=== PATIENT | female | born 1990 | race Caucasian/White ===

== ENCOUNTER 2021-06-14 23:32 | Emergency (ER) | payer OTHER, SELFPAY ==
[2021-06-14 23:42] VITALS: BP 119/57; PULSE 116; RESP 16; TEMP 36.4; O2SAT 99
[2021-06-15] VITALS (16 sets, daily range): BP systolic 102–114; BP diastolic 57–74; PULSE 111; RESP 16; O2SAT 100
--- NOTE | 2021-06-15 00:33 | ED.NAVMDI ---
HPI - Nausea/Vomiting/Diarrhea General Chief complaint: Nausea/Vomiting/Diarrhea Stated complaint: n/v/d Time Seen by Provider: 06/14/21 23:41 History of Present Illness HPI Narrative: 30-year-old female presented the emergency room complaining of nausea vomiting and diarrhea since 3:00 this afternoon. Patient reports generalized abdominal discomfort/cramping. Denies fever Related Data Allergies Allergy/AdvReac Type Severity Reaction Status Date / Time No Known Allergies Allergy Verified 06/14/21 23:44 Review of Systems Review of Systems: CONSTITUTIONAL: Denies fever, chills, or sweats. EYES: Denies visual changes, redness, or discharge. ENT: Denies rhinorrhea, congestion, sore throat, or otalgia. CARDIOVASCULAR: Denies chest pain, palpitations, or edema. RESPIRATORY: Denies cough or dyspnea. GASTROINTESTINAL: Reports abdominal pain, nausea, vomiting, or diarrhea. GENITOURINARY: Denies dysuria or hematuria. SKIN: Denies rash or itching. MUSCULOSKELETAL: Denies back pain, joint pain, or myalgia. NEUROLOGIC: Denies headache, numbness, dizziness, or weakness. PSYCHIATRIC: Denies anxiety or depression. Exam Narrative: GENERAL: Well-appearing, well-nourished, and in no acute distress. HEAD: Normocephalic, atraumatic. EYES: PERRLA and EOMI. CHEST: Clear to auscultation. No respiratory distress. No wheezes rales or rhonchi HEART: Regular rate and rhythm. No murmur heard. Normal peripheral pulses. ABDOMEN: Soft, generalized tenderness, nondistended, normal active bowel sounds. EXTREMITIES: Normal range of motion. No edema. SKIN: Warm, dry, no rash. NEURO: No focal deficits. Alert and oriented x3. PSYCH: Normal mood and affect. Course Vital Signs Vital signs: Vital Signs Temperature 36.4 C L 06/14/21 23:42 Pulse Rate 116 H 06/14/21 23:42 Respiratory Rate 16 06/14/21 23:42 Blood Pressure 119/57 L 06/14/21 23:42 Pulse Oximetry 99 06/14/21 23:42 Temperature 36.4 C L 06/14/21 23:42 Pulse Rate 116 H 06/14/21 23:42 Respiratory Rate 16 06/14/21 23:42 Blood Pressure 119/57 L 06/14/21 23:42 Pulse Oximetry 99 06/14/21 23:42 MDM - Nausea/Vomiting/Diarrhea MDM Narrative Medical decision making narrative: 22-year-old female presented to the emergency room for evaluation of nausea vomiting and diarrhea that began earlier today. Patient reported generalized abdominal cramping as well. CBC showed elevated white count likely due from the inflammatory response of the vomiting and elevated blood sugar. Otherwise a CBC and CMP were unremarkable. Patient responded well to fluids antiemetics and antispasmodics. Differential Diagnosis Differential diagnosis: Likely gastroenteritis Medical Records Attestation: I reviewed the patient's medical records. Lab Data Attestation: I reviewed the patient's lab results. Result diagrams: 06/15/21 00:40 06/15/21 00:40 Labs: Lab Results 06/15/21 06/15/21 Range/Units 00:40 00:40 WBC 14.0 H (4.5-10.0) K/mm3 RBC 4.87 (4.2-5.4) M/mm3 Hgb 12.8 (12.0-15.0) g/dL Hct 41.5 (37.0-47.0) % MCV 85.2 (80-100) fl MCH 26.3 (26-34) pg MCHC 30.8 L (32-36) g/dl RDW 14.9 H (11.5-14.5) % Plt Count 242 (150-375) k/mm3 MPV 11.6 H (7.4-10.4) fl Immature Gran % (Auto) 0.4 (0-0.5) % Neut % (Auto) 91.8 H (45.5-73.1) % Lymph % (Auto) 2.4 L (18.3-44.2) % Ramsey % (Auto) 4.9 (2.6-8.5) % Eos % (Auto) 0.1 (0-4.4) % Baso % (Auto) 0.4 (0.2-1.2) % Lymph # (Auto) 0.34 L (0.9-3.2) K/mm3 Ramsey # (Auto) 0.7 H (0.1-0.6) K/mm3 Eos # (Auto) 0.0 (0-0.3) K/mm3 Baso # (Auto) 0.1 (0.0-0.1) K/mm3 Abs Immat Gran (auto) 0.06 H (0.00-0.031) K/mm3 Absolute Neuts (auto) 12.8 H (1.3-6.7) K/mm3 Absolute Nucleated RBC 0.0 (0.0-0.012) K/mm3 Nucleated RBC % 0.0 (0.0-0.2) % Sodium 138 (137-145) mmol/L Potassium 3.9 (3.4-5.0) mmol/L Chloride 101 (98-107) mmol/L Carbon Dioxide 26 (2
[2021-06-15] MEDS: SODIUM CHLORIDE 0.9% IV 1,000 ML 999 ML IV CONT ×2 (00:34→02:14)
[2021-06-15] MEDS: ONDANSETRON INJ 4 MG/2 ML VIAL IV PUSH (00:34)
[2021-06-15] MEDS: DICYCLOMINE HCL INJ 20 MG/2 ML VIAL IM (00:37)
[2021-06-15 00:47] LABS: Basophils Absolute Auto 0.1 K/mm3 (0.0-0.1); Basophils Percent Auto 0.4 % (0.2-1.2); Eosinophils Percent Auto 0.1 % (0-4.4); Hematocrit 41.5 % (37.0-47.0); Hemoglobin 12.8 g/dL (12.0-15.0); Immature Granulocyte Absolute 0.06 K/mm3 (0.00-0.031); Immature Granulocyte Percent A 0.4 % (0-0.5); Lymphocytes Absolute Auto 0.34 K/mm3 (0.9-3.2); Lymphocytes Percent Auto 2.4 % (18.3-44.2); Mean Corpuscular HGB Conc 30.8 g/dl (32-36); Mean Corpuscular Hemoglobin 26.3 pg (26-34); Mean Corpuscular Volume 85.2 fl (80-100); Mean Platelet Volume 11.6 fl (7.4-10.4); Monocytes Absolute Auto 0.7 K/mm3 (0.1-0.6); Monocytes Percent Auto 4.9 % (2.6-8.5); Neutrophils Absolute Auto 12.8 K/mm3 (1.3-6.7); Neutrophils Percent Auto 91.8 % (45.5-73.1); Platelet Count Result 242 k/mm3 (150-375); Red Blood Count 4.87 M/mm3 (4.2-5.4); Red Cell Distribution Width 14.9 % (11.5-14.5)
[2021-06-15 00:57] LABS: Alanine Aminotransferase 15 U/L (4-35); Albumin Level 4.9 g/dL (3.5-5.1); Alkaline Phosphatase 83 U/L (38-126); Anion Gap 11 mmol/L (8-16); Aspartate Amino Transferase 26 U/L (14-36); Bilirubin,Total 0.2 mg/dL (0.2-1.3); Blood Urea Nitrogen 13 mg/dL (7-17); Calcium 8.7 mg/dL (8.4-10.2); Carbon Dioxide 26 mmol/L (22-30); Chloride 101 mmol/L (98-107); Estimated CRCL calculation 89 ml/min; Estimated Glomerular Filt Rate > 60; Glucose 160 mg/dL (65-110); Potassium 3.9 mmol/L (3.4-5.0); Sodium 138 mmol/L (137-145)
[2021-06-15] MEDS: PANTOPRAZOLE SODIUM IV 40 MG VIAL IV PUSH (01:47)
[2021-06-15] MEDS: diphenhydrAMINE HCl INJ 50 MG/ML VIAL 25 MG IV PUSH (02:15)
[2021-06-15] MEDS: SODIUM CHLORIDE 0.9% IV 100 ML 500 ML (02:15)
[2021-06-15] MEDS: METOCLOPRAMIDE HCL INJ 10 MG/2 ML VIAL IV PUSH (02:15)
[2021-06-15] MEDS: METOCLOPRAMIDE HCL INJ 10 MG/2 ML VIAL IM (04:30)
== END 2021-06-15 06:12 | disposition home or self-care (01) ==
PROVIDERS: Emergency Provider Nurse Practitioner Family
DX: A05.9 Bacterial foodborne intoxication, unspecified (principal)
CPT/HCPCS: 36415; 80053; 85025; 96361; 96372; 96374; 96375; 99284; C9113; J0500; J1200; J2405; J2765; J7030

== ENCOUNTER 2022-04-15 02:35 | Emergency (ER) | payer SELFPAY ==
--- NOTE | ~2022-04-15 | CT_ITS ---
EXAMINATION: CT brain wo con INDICATION: Headache COMPARISON: None TECHNIQUE: Standard unenhanced head CT. The dose-length product (DLP) was 605.33 mGy-cm. The mA was a djusted according to patient size. Iterative reconstruction technique was employed. FINDINGS: There is no intracranial hemorrhage, acute infarction, or abnormal mass lesion. The ventric les are normal. There is no abnormal mass effect or midline shift. The zeng-white matter differentiat ion is normal. The basal cisterns are patent. The orbits are normal. The paranasal sinuses, mastoids and calvarium are normal. IMPRESSION: 1. No acute intracranial abnormality. Reviewed, dictated and finalized at location B. [facility] [employer]
[2022-04-15 03:28] VITALS: BP 135/81; PULSE 100; RESP 16; TEMP 37.1; O2SAT 100
[2022-04-15 06:19] VITALS: BP 131/79; PULSE 94; RESP 18; TEMP 36.6; O2SAT 99
--- NOTE | 2022-04-15 07:54 | ED.GENADULT ---
HPI - General Adult General Chief complaint: Headache Stated complaint: int sharp head pain Time Seen by Provider: 04/15/22 06:56 History of Present Illness HPI narrative: 31-year-old female presented emerged department for evaluation of intermittent left-sided occipital headaches. Patient states that the headache started yesterday approximately 2 PM and she describes a short flash of a pain that stays fairly localized to the back of her scalp. Patient denies any associated nausea vomiting or numbness or weakness with this. Patient denies any falls or injuries. 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 Related Data Allergies Allergy/AdvReac Type Severity Reaction Status Date / Time No Known Allergies Allergy Verified 06/14/21 23:44 Review of Systems Review of Systems: CONSTITUTIONAL: Denies fever, chills, or sweats. EYES: Denies visual changes, redness, or discharge. ENT: Denies rhinorrhea, congestion, sore throat, or otalgia. CARDIOVASCULAR: Denies chest pain, palpitations, or edema. RESPIRATORY: Denies cough or dyspnea. GASTROINTESTINAL: Denies abdominal pain, nausea, vomiting, or diarrhea. GENITOURINARY: Denies dysuria or hematuria. SKIN: Denies rash or itching. MUSCULOSKELETAL: Denies back pain, joint pain, or myalgia. NEUROLOGIC: See HPI Exam Narrative: APPEARANCE: Well appearing, no pain, no distress, well-nourished. HEAD: normocephalic, atraumatic. EYES: PERRLA/EOMI, conjunctivae clear. NOSE: Normal no drainage EARS:TMS clear with good light reflex. THROAT: Pharynx clear, no exudate. NECK: Supple. No adenopathy, no masses. RESPIRATORY: Airway patent, respirations nonlabored. Clear to auscultation bilaterally, no rales, rhonchi, wheezing. CARDIOVASCULAR: Regular rate and rhythm without murmurs rubs or gallops. ABDOMINAL: Soft, nontender, nondistended, normal bowel sounds MUSCULOSKELETAL: Moves all extremities. Strength/ROM intact, No edema, No calf tenderness. NEURO: Alert. Cranial nerves II through XII intact. Normal strength and reflexes, no ataxia, normal Romberg no drift normal heel-to-toe and forward and backward tandem gait SKIN: Warm, dry. Normal [place]. no lesions on the skin at the site of of occipital tenderness. Course Course Emergency Course: With no prior history of headaches but having significant headaches a CT was ordered to rule out any intracranial abnormality including epidural, subdural hematoma. Patient's pain is fairly localized and reproducible. Pain is localized to the site of the occipital nerve. I feel an occipital neuralgia is more likely. Discussed treatment options including gabapentin but due to patient requiring to take the bar exam in the next few days it was agreed that steroids may be more beneficial. Patient was updated on the plan for treatment. All question concerns were addressed. 8:30 AM patient had a negative head CT. Patient's symptoms are consistent with an occipital neuralgia with intermittent sharp pain radiating from an occipital trigger point. Pain is reproducible with palpation. Patient will be started on a Medrol Dosepak and was informed to take Tylenol for pain control. Patient was provided neurology follow-up. Low concern for subdural or epidural hematoma due to negative imaging. Patient was updated on the results of the work-up. All question concerns were addressed. Patient was stable at time of discharge. Vital Signs Vital signs: Vital Signs Temperature 98.7 F 04/15/22 03:28 Pulse Rate 100 04/15/22 03:28 Respiratory Rate 16 04/15/22 03:28 Blood Pressure 135/81 04/15/22 03:28 Pulse Oximetry 100 04/15/22 03:28 Oxygen Delivery Room Air 04/15/22 03:28 Temperature 98 F 04/15/22 06:19 Pulse Rate 76 04/15/22 08:48 Respiratory Rate 16 04/15/22 08:48 Blood Pressure 115/71
[2022-04-15] MEDS: KETOROLAC 30 MG/ML VIAL (*BKC) IM (08:35)
[2022-04-15 08:48] VITALS: BP 115/71; PULSE 76; RESP 16; O2SAT 100
== END 2022-04-15 08:45 | disposition home or self-care (01) ==
PROVIDERS: Emergency Provider Emergency Medicine; PCP Family Medicine
DX: R51.9 Headache, unspecified (principal); M54.81 Occipital neuralgia
CPT/HCPCS: 70450; 96372; 99284; J1885

== ENCOUNTER 2022-09-04 21:02 | Emergency (ER) | payer OTHER, SELFPAY ==
[2022-09-04 21:03] VITALS: BP 128/92; PULSE 105; RESP 18; TEMP 36.4; O2SAT 100
--- NOTE | 2022-09-04 21:23 | ED.GENADULT ---
HPI - General Adult General Chief complaint: Skin/Abscess/Foreign Body Stated complaint: ingrown hair Time Seen by Provider: 09/04/22 21:08 Source: patient Mode of arrival: ambulatory Limitations: no limitations History of Present Illness HPI narrative: This is a 32-year-old female who presents to the ED with chief complaint of possible skin infection onset yesterday. Patient noticed some redness around the bikini line. She feels like a hair follicle may be infected. She saw some purulent material earlier today and was able to express it and is no longer seen any. She states she is concerned for staph infection. She denies fevers, chills, nausea, vomiting, spreading redness or swelling around the groin. Related Data Allergies Allergy/AdvReac Type Severity Reaction Status Date / Time No Known Allergies Allergy Verified 09/04/22 21:02 Exam Narrative: GENERAL: Well-appearing, well-nourished, and in no acute distress. HEAD: Normocephalic, atraumatic. EYES: PERRLA and EOMI. ENT: Nares clear, no rhinorrhea or epistaxis. Mucous membranes moist. Oropharynx without tonsillar hypertrophy exudate or other lesions. NECK: Supple. No adenopathy or masses. CHEST: No respiratory distress. Clear to auscultation. No wheezes rales or rhonchi HEART: Regular rate and rhythm. No murmur heard. Normal peripheral pulses. ABDOMEN: Soft, nontender, nondistended, normal active bowel sounds. MSK: Normal range of motion. No edema. SKIN: Small area of erythema around hair follicle near the right groin crease. No purulent material able to be expressed. No spreading erythema throughout the groin. Minimal tenderness. NEURO: Alert and oriented x3. No focal deficits. PSYCH: Normal mood and affect. Course Vital Signs Vital signs: Vital Signs Temperature 97.6 F 09/04/22 21:03 Pulse Rate 105 H 09/04/22 21:03 Respiratory Rate 18 09/04/22 21:03 Blood Pressure 128/92 H 09/04/22 21:03 Pulse Oximetry 100 09/04/22 21:03 Oxygen Delivery Room Air 09/04/22 21:03 Temperature 97.6 F 09/04/22 21:03 Pulse Rate 105 H 09/04/22 21:03 Respiratory Rate 18 09/04/22 21:03 Blood Pressure 128/92 H 09/04/22 21:03 Pulse Oximetry 100 09/04/22 21:03 Oxygen Delivery Room Air 09/04/22 21:03 Medical Decision Making MDM Narrative Medical decision making narrative: This is a 32-year-old female who presents to the ED with chief complaint of a possible ingrown hair in the groin region. Vitals are normal. Exam does reveal evidence of folliculitis. She will be given topical antibiotics and a prescription for oral antibiotics. Supportive measures for home discussed. Return precautions given. Patient is understanding and agreeable with the plan for discharge and follow-up with her PCP. Vital Signs Vital Signs: Vital Signs Temperature 97.6 F 09/04/22 21:03 Pulse Rate 105 H 09/04/22 21:03 Respiratory Rate 18 09/04/22 21:03 Blood Pressure 128/92 H 09/04/22 21:03 Pulse Oximetry 100 09/04/22 21:03 Oxygen Delivery Room Air 09/04/22 21:03 Temperature 97.6 F 09/04/22 21:03 Pulse Rate 105 H 09/04/22 21:03 Respiratory Rate 18 09/04/22 21:03 Blood Pressure 128/92 H 09/04/22 21:03 Pulse Oximetry 100 09/04/22 21:03 Oxygen Delivery Room Air 09/04/22 21:03 Discharge Plan Discharge Clinical Impression: Folliculitis Patient Disposition: Home, Self-Care Condition: Stable Instructions: Antibiotic Form, Warm Compress or Soak (ED) Additional Instructions: Use warm compresses and warm soaks on the affected area. Use antibacterial soap daily. Change the dressing and use topical antibiotics daily. Please take the antibiotic through its full course. This should start to resolve over the next 3 days. If you have any new or worsening symptoms as we discussed please return to the ER or see your doctor for further evaluation. Prescriptions: New cephalexin 500 mg capsule 500 mg
[2022-09-04] MEDS: CEPHALEXIN 500 MG CAPSULE PO (21:57)
== END 2022-09-04 22:18 | disposition home or self-care (01) ==
PROVIDERS: Emergency Provider Physician Assistant; PCP Internal Medicine
DX: L73.9 Follicular disorder, unspecified (principal)
CPT/HCPCS: 99283; A9270

== ENCOUNTER 2023-02-22 16:39 | Emergency (ER) | payer OTHER, SELFPAY ==
[2023-02-22 16:49] VITALS: BP 129/85; PULSE 98; RESP 16; TEMP 36.8; O2SAT 100
--- NOTE | 2023-02-22 17:36 | ED.GENADULT ---
HPI - General Adult General Chief complaint: Extremity Injury, Upper Stated complaint: Right Finger Injury Time Seen by Provider: 02/22/23 17:37 Source: patient Mode of arrival: ambulatory Limitations: no limitations History of Present Illness HPI narrative: 32-year-old female presented for complaint of puncture wound to the right index fingertip. Injury occurred about 4 days ago when she lifted a metal object that poked the finger. Since then she has had a small red area to the fingertips, but states the site appears bigger today than it was yesterday. She denies any drainage or streaking, nausea vomiting or fever. No treatment prior to arrival. Related Data Allergies Allergy/AdvReac Type Severity Reaction Status Date / Time No Known Allergies Allergy Verified 09/04/22 21:02 Review of Systems Review of Systems: CONSTITUTIONAL: Denies body aches, fever, chills, or sweats. EYES: Denies visual changes, redness, or discharge. ENT: Denies rhinorrhea, congestion CARDIOVASCULAR: Denies chest pain, palpitations, or edema. RESPIRATORY: Denies cough or dyspnea. GASTROINTESTINAL: Denies abdominal pain, nausea, vomiting, or diarrhea. SKIN: reports right index finger wound MUSCULOSKELETAL: Denies back pain, joint pain, or myalgia. NEUROLOGIC: Denies headache, numbness, tingling, or weakness. [facility] Past Medical History Medical History (Updated 02/22/23 @ 17:50 by Suzanne Humphreys APRN) No pertinent past medical history Comments At time of signature, I have reviewed and agree with nursing past medical, surgical, social and family history unless otherwise noted. Please see nursing chart for further information. There is no relevant family history pertinent to the presenting complaint Exam Narrative: GENERAL: Well-appearing HEAD: Normocephalic EYES: conjunctivae clear, and EOMI. ENT: Mucous membranes moist. Oropharynx without edema, erythema or lesions. NECK: Supple. No lymphadenopathy CHEST: Clear to auscultation. HEART: Regular rate and rhythm. SKIN: Warm, dry. Right hand 2nd digit finger tip with approximately 2 mm diameter circular puncture site with yellow center surrounded with red ring; mildly tender. No swelling, drainage, fluctuance or induration. NEURO: Alert and oriented x3. Course Course Emergency Course: Patient is aware of diagnosis, understands and agrees to treatment plan. Anticipatory guidance given. Patient agrees to follow-up as directed and is aware of reasons to seek care at the emergency department. Portions of this record may have been created with voice recognition software Level of Care: Express Care Visit Vital Signs Vital signs: Vital Signs Temperature 98.3 F 02/22/23 16:49 Pulse Rate 98 02/22/23 16:49 Respiratory Rate 16 02/22/23 16:49 Blood Pressure 129/85 02/22/23 16:49 Pulse Oximetry 100 02/22/23 16:49 Temperature 98.3 F 02/22/23 16:49 Pulse Rate 98 02/22/23 16:49 Respiratory Rate 16 02/22/23 16:49 Blood Pressure 129/85 02/22/23 16:49 Pulse Oximetry 100 02/22/23 16:49 Reviewed Medical Decision Making MDM Narrative Medical decision making narrative: Discussed physical exam findings. Advised supportive measures and signs/symptoms to go to the ER. Pt is appropriate for outpt treatment and f/u. Differential Diagnosis Differential Diagnosis: puncture wound, cellulitis, abscess, abrasion, contusion, paronychia, felon Vital Signs Vital Signs: Vital Signs Temperature 98.3 F 02/22/23 16:49 Pulse Rate 98 02/22/23 16:49 Respiratory Rate 16 02/22/23 16:49 Blood Pressure 129/85 02/22/23 16:49 Pulse Oximetry 100 02/22/23 16:49 Temperature 98.3 F 02/22/23 16:49 Pulse Rate 98 02/22/23 16:49 Respiratory Rate 16 02/22/23 16:49 Blood Pressure 129/85 02/22/23 16:49 Pulse Oximetry 100 02/22/23 16:49 Discharge Plan Discharge Clinical Impression: Puncture wound of finger of right sin
== END 2023-02-22 17:49 | disposition home or self-care (01) ==
PROVIDERS: Emergency Provider Nurse Practitioner Family
DX: S61.230A Puncture wound without foreign body of right index finger without damage to nail, initial encounter (principal); W45.8XXA Other foreign body or object entering through skin, initial encounter
CPT/HCPCS: 99213; G0463

== ENCOUNTER 2023-04-25 11:43 | Emergency (ER) | payer OTHER, SELFPAY ==
--- NOTE | ~2023-04-25 | XR_ITS ---
EXAMINATION: XR toe 2nd RT min 2V DATE: 04/25/2023 12:35 INDICATION: Right second toe injury and pain and swelling. TECHNIQUE: 4 views of right second toe were obtained. COMPARISON: None. FINDINGS: Bone alignment is normal. No fracture. Joint spaces are normal. IMPRESSION: 1. No fracture. Reviewed, dictated and finalized at location A. SPORTATION ATTENDANT IMPRESSION: 1. No fracture.
[2023-04-25 11:58] VITALS: BP 122/80; PULSE 100; RESP 16; TEMP 36.9; O2SAT 100
--- NOTE | 2023-04-25 12:34 | ED.GENADULT ---
HPI - General Adult General Chief complaint: Extremity Problem,Nontraumatic Stated complaint: Swelling to right middle toe Time Seen by Provider: 04/25/23 12:29 Source: patient, RN notes reviewed and old records reviewed Mode of arrival: ambulatory Limitations: no limitations History of Present Illness HPI narrative: 32-year-old female who presents to [facility] with complaints of pain and swelling to her right 3rd toe which initially occurred with an injury which occurred on the 12 of April when she hit toe on a chair. Patient reports that it was getting better and then she did yoga and thinks she aggravated the pain in her right third toe. MD complaint: pain right third toe Onset (ago): day(s) (initially injuryed 04/12/2023) Severity scale (1-10): 3 Treatments prior to arrival: cold therapy Related Data Allergies Allergy/AdvReac Type Severity Reaction Status Date / Time No Known Allergies Allergy Verified 04/25/23 12:06 Review of Systems Review of Systems: CONSTITUTIONAL: Denies fever, chills, or sweats. EYES: Denies visual changes, redness, or discharge. ENT: Denies rhinorrhea, congestion, sore throat, or otalgia. CARDIOVASCULAR: Denies chest pain, palpitations, or edema. RESPIRATORY: Denies cough or dyspnea. GASTROINTESTINAL: Denies abdominal pain, nausea, vomiting, or diarrhea. GENITOURINARY: Denies dysuria or hematuria. SKIN: Denies rash or itching. MUSCULOSKELETAL: Denies back pain,3rd right toe pain , or myalgia. NEUROLOGIC: Denies headache, numbness, or weakness. PSYCHIATRIC: Denies anxiety or depression. All systems reviewed & are unremarkable except as noted in HPI and below PMFSH Past Medical History Medical History No pertinent past medical history Social History Social History Smoking status: Never smoker Alcohol intake: current Alcohol use details: rare Substance use type: does not use Gender identity (if verbalized by the patient): Female Comments At time of signature, agree with nursing past medical, surgical, social and family history. There is no relevant family history pertinent to the presenting complaint Exam Narrative: GENERAL: Well-appearing, well-nourished, and in no acute distress. HEAD: Normocephalic, atraumatic. EYES: PERRLA and EOMI. ENT: Nares clear, no rhinorrhea or epistaxis. Mucous membranes moist. NECK: Supple.no lymphadenopathy CHEST: Clear to auscultation. No respiratory distress.SAO2 100% on room air HEART: Regular rate and rhythm. No murmur heard. Normal peripheral pulses. ABDOMEN: Soft, nontender, nondistended, normal active bowel sounds. EXTREMITIES: Normal range of motion. No edema. Pain to right 3rd toe after blunt injury, no obvious deformity,minimal swelling to distal oint area SKIN: Warm, dry, no rash. NEURO: No focal deficits. Alert and oriented x3. Course Course Emergency Course: Patient is aware of diagnosis, understands and agrees to treatment plan.? Anticipatory guidance given.? Patient agrees to follow-up as directed and is aware of reasons to seek care at the emergency department. Portions of this record may have been created with voice recognition software Level of Care: Express Care Visit Vital Signs Vital signs: Vital Signs Temperature 36.9 C 04/25/23 11:58 Pulse Rate 100 04/25/23 11:58 Respiratory Rate 16 04/25/23 11:58 Blood Pressure 122/80 04/25/23 11:58 Pulse Oximetry 100 04/25/23 11:58 Oxygen Delivery Room Air 04/25/23 11:58 Temperature 36.9 C 04/25/23 11:58 Pulse Rate 100 04/25/23 11:58 Respiratory Rate 16 04/25/23 11:58 Blood Pressure 122/80 04/25/23 11:58 Pulse Oximetry 100 04/25/23 11:58 Oxygen Delivery Room Air 04/25/23 11:58 Reviewed Medical Decision Making MDM Narrative Medical decision making narrative: Exam findings and imaging show no acute concerns or
== END 2023-04-25 12:56 | disposition home or self-care (01) ==
PROVIDERS: Emergency Provider Registered Nurse
DX: S90.121A Contusion of right lesser toe(s) without damage to nail, initial encounter (principal); W22.03XA Walked into furniture, initial encounter
CPT/HCPCS: 73660; 99213; G0463

== ENCOUNTER 2023-10-19 16:39 | Emergency (ER) | payer OTHER, SELFPAY ==
--- NOTE | 2023-10-19 16:44 | ED.EAR ---
HPI - Ear Problem General Chief complaint: Ear Stated complaint: EARRING STUCK IN EAR Time Seen by Provider: 10/19/23 16:44 Source: patient, RN notes reviewed and old records reviewed Mode of arrival: ambulatory Limitations: no limitations History of Present Illness HPI Narrative: 33-year-old female to [facility] for complaint hearing stack cartilage right upper ear. Patient reports that the ring has been in place for many years. Patient states that today she heard bleed removed a face mask and it became caught in the earring, pulling the back of the earring off. Patient requesting to have earring removed. States she was too nervous to do it at home in case there was an injury to the back of her ear that she was unable to see. Patient denies any prior complications with piercing site, bleeding, swelling, pain, drainage. Patient resting comfortably in exam room in no acute distress. Related Data Allergies Allergy/AdvReac Type Severity Reaction Status Date / Time No Known Allergies Allergy Verified 04/25/23 12:06 Review of Systems Review of Systems: All systems reviewed & are unremarkable except as noted in HPI and below Constitutional: Constitutional: Reports no additional constitutional complaints Eyes: Eyes: Reports no additional eye complaints ENT: Reports as per HPI and Reports other (earring present in right upper ear; patient requesting removal) Cardiovascular: Cardiovascular: Reports no additional cardiovascular complaints, Denies chest pain and Denies dyspnea Respiratory: Respiratory: Reports no additional respiratory complaints, Denies cough and Denies dyspnea Musculoskeletal: Musculoskeletal: Reports no additional musculoskeletal complaints Neurologic: Reports system reviewed and no additional complaints, except as documented Psychiatric: Psychiatric: Reports no additional psychiatric complaints PMFSH Past Medical History Medical History No pertinent past medical history Social History Social History Smoking status: Never smoker Alcohol intake: current Alcohol use details: rare Substance use type: does not use Gender identity (if verbalized by the patient): Female Comments At the time of my signature, I reviewed and agree with the nursing past medical, surgical, social, and family history. There is no relevant family history pertinent to the patient complaint. Exam Const: General: cooperative, healthy appearing, comfortable, no acute distress, alert, anxious and well nourished Nutritional Appearance: well nourished Orientation/consciousness: patient oriented x3 Limitations: no limitations HENMT: Head: normal to inspection Ears: other (Earring post present in right scapha. Cleansed and removed w/o difficulty. ) Face/Nose/Sinus: Normal external nose present, Normal nares present, normal facial exam, No erythema and No edema Face and sinus: normal facial exam, no erythema and no edema Mouth: Yes Normal oral and palatal mucosa present Eyes: General: appearance normal, both eyes and all related structures Neck: Neck: normal visual inspection, full ROM and no meningeal signs Chest: Chest palpation & inspection: normal inspection of the chest Resp: Effort & Inspection: normal respiratory effort and able to speak in complete sentences Cardio: Jugular venous distension: no JVD Rate: regular rate Rhythm: regular rhythm Back/Spine/Pelvis: Cervical Spine: cervical ROM normal Skin: General skin exam: normal color, no rashes or lesions noted and turgor normal Neuro: General: patient oriented x3, gait normal, moves all extremities and no meningeal signs Speech: normal speech Gait exam (Neuro): Normal gait present Extrem: General: normal to inspection and full ROM Psych: Appearance: grossly normal and well kempt Course Course Emergency Course: Some parts of t
[2023-10-19 16:53] VITALS: BP 121/75; PULSE 97; RESP 16; TEMP 36.7; O2SAT 100
== END 2023-10-19 17:50 | disposition home or self-care (01) ==
PROVIDERS: Emergency Provider Nurse Practitioner Family
DX: S01.341A Puncture wound with foreign body of right ear, initial encounter (principal); X58.XXXA Exposure to other specified factors, initial encounter
CPT/HCPCS: 99212; G0463

== ENCOUNTER 2024-01-21 18:07 | Emergency (ER) | payer BC, SELFPAY ==
[2024-01-21 18:31] VITALS: BP 125/81; PULSE 101; RESP 16; TEMP 37.1; O2SAT 100
--- NOTE | 2024-01-21 18:38 | ED.EYEPROB ---
HPI - Eye Problem General Chief complaint: Eye Problems Stated complaint: Eye Problem Source: patient Mode of arrival: ambulatory Limitations: no limitations History of Present Illness HPI Narrative: 33 y/o female presented with c/o left eye twitching. Onset yesterday. States the symptom started 7 hours after a massage, it also resulted in left neck pain which has resolved. She took ibuprofen and removed her contact lenses. Denies eye swelling, redness, pain, FB sensation, photophobia, visual changes. chief complaint: eye pain Related Data Allergies Allergy/AdvReac Type Severity Reaction Status Date / Time No Known Allergies Allergy Verified 04/25/23 12:06 Review of Systems Review of Systems: CONSTITUTIONAL: Denies body aches, fever, chills EYES: reports eye twitching denies swelling, redness, pain, FB sensation, photophobia, visual changes ENT: Denies rhinorrhea, congestion, sore throat, or otalgia. CARDIOVASCULAR: Denies chest pain, palpitations RESPIRATORY: Denies cough or dyspnea. SKIN: Denies rash, itching, or wounds. MUSCULOSKELETAL: Denies back pain, joint pain, or myalgia. NEUROLOGIC: Denies headache, numbness, tingling, or weakness. All systems reviewed & are unremarkable except as noted in HPI and below PMFSH Past Medical History Medical History (Updated 01/21/24 @ 18:52 by Suzanne Humphreys APRN) Melanoma Social History Social History Smoking status: Never smoker Alcohol intake: current Alcohol use details: rare Substance use type: does not use Gender identity (if verbalized by the patient): Female Comments At time of signature, I have reviewed and agree with nursing past medical, surgical, social and family history unless otherwise noted. Please see nursing chart for further information. There is no relevant family history pertinent to the presenting complaint Exam Narrative: GENERAL: Well-appearing HEAD: Normocephalic, atraumatic. EYES: No conjunctival injection, no eye lid swelling/redness. PERRLA EOMI. Lid eversion shows no foreign body ENT: Mucous membranes pink and moist. No rhinorrhea. SKIN: Warm, dry, no rash. Normal skin turgor. NEURO: No focal deficits. Alert and oriented x3 PSYCH: Normal affect. Course Course Emergency Course: Patient is aware of diagnosis, understands and agrees to treatment plan. Anticipatory guidance given. Patient agrees to follow-up as directed and is aware of reasons to seek care at the emergency department. Portions of this record may have been created with voice recognition software Level of Care: Express Care Visit Vital Signs Vital signs: Vital Signs Temperature 98.7 F 01/21/24 18:31 Pulse Rate 101 H 01/21/24 18:31 Respiratory Rate 16 01/21/24 18:31 Blood Pressure 125/81 01/21/24 18:31 Pulse Oximetry 100 01/21/24 18:31 Temperature 98.7 F 01/21/24 18:31 Pulse Rate 101 H 01/21/24 18:31 Respiratory Rate 16 01/21/24 18:31 Blood Pressure 125/81 01/21/24 18:31 Pulse Oximetry 100 01/21/24 18:31 MDM - Eye Problem MDM Narrative Medical decision making narrative: Discussed physical exam findings. Advised supportive measures and signs/symptoms to go to the ER. Pt is appropriate for outpt treatment and f/u. Differential Diagnosis Differential diagnosis: Likely corneal abrasion, conjunctivitis, acute iritis and other (Involuntary muscle movement) Discharge Plan Discharge Clinical Impression: Eye twitch Patient Disposition: Home, Self-Care Condition: Stable Instructions: Muscle Spasm (ED) Additional Instructions: Recommend eye rest. Remove contacts. Limit use of screens. Follow up with your primary care provider as needed in 1 week Go to the ER for worsening symptoms or concerns Follow-up/Referrals: PHYSICIAN,COMMERCIAL LENDING RELATIONSHIP MANAGER [Primary Care Provider] - Time of Disposition: 18:50
== END 2024-01-21 18:52 | disposition home or self-care (01) ==
PROVIDERS: Emergency Provider Nurse Practitioner Family
DX: G24.5 Blepharospasm (principal); Z85.820 Personal history of malignant melanoma of skin
CPT/HCPCS: 99212; G0463

== ENCOUNTER 2024-10-29 01:12 | Emergency (ER) | payer BC, SELFPAY ==
--- OUTSIDE RECORDS SUMMARY | 2024-10-29 01:15 | XMS_ITS | Clinical Summary ---
Author Organization [facility] Address [address] [place] [address] Care Team Providers Care Biological Chemist Name Role Phone Apolonia Ponce EXPERIMENTAL MECHANIC SPACECRAFT-LABORATORY SPECIALIST Primary Care Provider + Apolonia Ponce EXPERIMENTAL MECHANIC SPACECRAFT-LABORATORY SPECIALIST Unavailable [phone] Source Comments [facility],non-owned Affiliates and Associated Physician Practices is amultiple site organization consisting of ambulatory clinics and hospital sitesin [place], [place], [place] and [place]. This disclosure is being madepursuant to the Care Everywhere program and may not contain all information available regarding this patient. Last updated 17.[facility] Allergies No known active allergies Medications * Be aware that medications may not be up to date on this document. Alwaysverify current medications with the patient. multivitamins plus minerals chew tablet Take 1 (one) tablet by mouth daily with food (chew and swallow) Active famotidine (Pepcid) 20 MG tabletIndicatio ns:Throat tightness Take 1 (one) tablet by mouth at bedtime 09/30/2024 Active cetirizine (ZyrTEC) 10 MG tabletIndicatio ns:Discomfort of left ear Take 1 (one) tablet by mouth once daily 09/30/2024 Active Active Problems Problem Noted Date Diagnosed Date Myofascial neck pain 06/28/2024 History of melanoma 10/05/2022 Allergic rhinitis 07/20/2021 Malignant melanoma of skin of lower limb, includ ing hip 07/20/2021 DVT (deep venous thrombosis) 07/20/2021 Resolved Problems Problem Noted Date Diagnosed Date Resolved Date Malignant melanoma 07/20/2021 Encounters Date Type Department Care Team Description 10/24/2024 Orders Only [facility] - Orthopedics [address] [place] [address], [place] [address] Alexandra Nicole MD Left shoulder pain, unspecified chronicity 10/16/2024 12:50 PM CDT Office Visit [facility] - Dermatology [address] [place] [address], [place] [address] Yasemin La MD Personal history of malignant melanoma of skin (Primary Dx); Multiple benign nevi; Seborrheic keratoses; Neoplasm of unspecified behavior of bone, soft tissue, and skin; Skin tag 10/16/2024 10:30 AM CDT Office Visit [facility] - Internal Med [address] [place] [phone] Abrasion (Primary Dx); Ganglion cyst 10/16/2024 Travel 10/10/2024 Orders Only [facility] - Internal Med [address] [place] [phone] Apolonia Ponce APRN-CNP Chronic left shoulder pain 10/08/2024 2:15 PM CDT - 10/08/2024 11:59 PM CDT Hospital Encounter [facility] Services [address] [place] [address] Apolonia Ponce APRN-CARL Internal Medicine Discharge Disposition: Home or Self Care 10/08/2024 Results Follow-Up [facility] - Internal Medicine [facility] [place] [phone] Apolonia Ponce APRN-CNP 09/30/2024 4:30 PM CDT Office Visit [facility] - Internal Medicine [facility], [address] [place] [phone] Apolonia Ponce APRN-CARL Chronic left shoulder pain (Primary Dx); Throat tightness; Discomfort of left ear 09/30/2024 Travel 08/08/2024 4:00 PM CDT Office Visit [facility] - Internal Medicine [address], [address] [phone] Apolonia Ponce APRN-CNP Iron deficiency anemia, unspecified iron deficiency anemia type (Primary Dx); BMI 28.0-28.9,adult; Weight loss counseling, encounter for; History of melanoma 08/08/2024 Travel 08/05/2024 Results Follow-Up [facility] - Internal Med [facility], [place] [phone] Apolonia Ponce APRN-CNP 08/01/2024 Orders Only [facility] - Internal Med [address], [place] [phone] Apolonia Ponce APRN-CNP from Last 3 Months Immunizations Immunization Administration Dates Next Due HEP A PEDS 2 DOSE 10/17/2006 INFLUENZA VACCINE, QUADR. (F LUZONE; FLULAVAL; FLUARIX; AFLURIA QUADRIVALENT; 6MO+), 0.5 ML (IIV4) 03/24/2023,02/21/2021 TDAP, HISTORIC VACCINE 02/27/2017 VARICELLA 10/17/2006 Family History Medical History Relation Name Comments None Known Father Diabetes; unknown type Maternal Grandfather CVA Maternal Grandmother Diabetes - Type 2 Maternal Grandmother Cancer - Cervical Mother Cancer - Lung Mother Cancer - Other Mother cervical Cancer - Pancreatic Paternal Grandfather CAD (Coronary Artery Disease) Paternal Grandmother Other - Cardiac Paternal Grandmother None Known Sister Cancer - Breast Neg Hx Relation Name Status Comments Father Alive Maternal Grandfather Maternal Grandmother Mother Paternal Grandfather Paternal Grandmother Alive Sister Alive Social History Tobacco Use Types Packs/Day Years Used Date Smoking Tobacco: Never Smokeless Tobacco: Never Tobacco Cessation:Counseling Given: Not Answered Alcohol Use Standard Drinks/Week Comments Yes 0 (1 standard drink = 0.6 oz pur e alcohol) occasional PHQ-2 Answer Date Recorded Patient Health Questionnaire-2 Score 0 10/16/2024 Comments No Sex and Gender Information Value Date Recorded Sex Assigned at Not on file Legal Sex Female 4:09 PM CDT Gender Identity Not on file Sexual Orientation Not on file Occupation Industry Job Start Date Job End Date Fellowship with [employer] Not on file Not on file Not on f ile Last Filed Vital Signs Vital Sign Reading Time Taken Comments Blood Pressure 124/81 10/16/2024 10:58 AM CDT Pulse 98 10/16/2024 10:58 AM CDT Temperature 36.2 C (97.2 F) 06/28/2024 1:38 PM CDT Respiratory Rate 16 12/08/2022 8:22 AM CDT Oxygen Saturation 97% 10/16/2024 10:58 AM CDT Inhaled Oxygen Concentration - - Weight 75.8 kg (167 lb) 10/16/2024 10:58 AM CDT Height 162.6 cm (5' 4) 10/16/2024 10:58 AM CDT Body Mass Index 28.67 10/16/2024 10:58 AM CDT Plan of Treatment Upcoming Encounters Date Type Department Care Team (Late st Contact Info) Description 11/05/2024 1:45 PM CDT [facility] [address] [place] [phone] Apolonia Ponce, EXPERIMENTAL MECHANIC SPACECRAFT-LABORATORY SPECIALIST [address] [place] [phone] Alexandra Nicole MD [address] [place] [phone] 02/13/2025 4:00 PM ANCHOR TACKER Office Visit [facility] - Internal Medicine [address], [address] [phone] Apolonia Ponce, EXPERIMENTAL MECHANIC SPACECRAFT-LABORATORY SPECIALIST [address] [place] [phone] Health Maintenance Due Date Last Done Comments HIV SCREENING 07/29/2007 HEPATITIS B VACCINE (1 of 3 - 19+ 3-dose series) 07/29/2011 HPV VACCINE (1 - 3-dose SCDM series) 07/29/2019 INFLUENZA VACCINE (#1) 2024 , 02/21/2021 COVID-19 VACCINE (4 - 2023-2 5 season) 2025 02/22/2021, 06/14/2020, 05/24/2020 Postponed from 10/29/2023 (Patient Directed) DTAP/TDAP/TD VACCINES (2 - T d or Tdap) 02/27/2027 02/27/2017 PAP with HPV 05/03/2028 05/04/2023 ZOSTER VACCINE (1 of 2) 2042 HEPATITIS C SCREENING Discontinued 09/07/2022 DEPRESSION SCREENING Completed 05/02/2024, 03/24/2023 HIB VACCINE Aged Out No longer eligi ble based on patient's age to complete this topic MENINGOCOCCAL (Group B) VACCINE SHARED DECISION-MAKING Aged Out No longer eligible b ased on patient's age to complete this topic MENINGOCOCCAL GROUPS A/C/Y/W VACCINE Aged Out No longer eligible b ased on patient's age to complete this topic PNEUMOCOCCAL VACCINE Aged Out No long er eligible based on patient's age to complete this topic Procedures Procedure Name Priority Date/Time Associated Diagnosis Comments XR SHOULDER LEFT 2VW OR MORE Routine 10/08/2024 2:27 PM CDT Chronic left shoulder pain CBC W/O DIFFERENTIAL 08/01/2024 10:25 AM CDT IRON + TIBC + FERRITIN 08/01/2024 10:25 AM CDT HPV DETECTION HIGH RISK TREV Routine 05/04/2023 11:43 AM ANCHOR TACKER Women's annual routine gynecological examination Screen for STD (sexually transmitted disease) from Last 3 Months or Most Recently Relevant to Health Maintenance Results * XR Shoulder Left 2Vw or More (10/08/2024 2:27 PM CDT) Anatomical Region Laterality Modality Upper Extremity Radiographic Tiarra ging 10/08/2024 2:31 PM CDT Impressions 10/08/2024 2:32 PM CDT IMPRESSION: As above. > Interpreting Provider: Harish Benedict MD on 10/08/2024 2:32 PM Narrative 10/08/2024 2:32 PM CDT PROCEDURE: XR SHOULDER LEFT 2VW OR MORE DATE/TIME OF EXAM: 10/08/2024 2:27 PM CLINICAL INFORMATION: None relevant/not provided if blank. Indication: M25.512: Chronic left shoulder pain G89.29: Chronic left shoulder pain Additional History: COMPARISON: None. FINDINGS: Humeral head is well-seated. No acute fracture is identified. Joint spaces are maintained. Procedure Note Harish Benedict MD - 10/08/2024 PROCEDURE: XR SHOULDER LEFT 2VW OR MORE DATE/TIME OF EXAM: 10/08/2024 2:27 PM CLINICAL INFORMATION: None relevant/not provided if blank. Indication: M25.512: Chronic left shoulder pain G89.29: Chronic left shoulder pain Additional History: COMPARISON: None. FINDINGS: Humeral head is well-seated. No acute fracture is identified. Jointspaces are maintained. IMPRESSION: As above. > Interpreting Provider: Harish Benedict MD on 10/08/2024 2:32 PM Apolonia [facility] ORDER SONDRA Final Result * (ABNORMAL) IRON + TIBC + FERRITIN (08/01/2024 10:25 AM CDT) Iron 89 40 - 190 mcg/dL [facility] TIBC 391 250 - 450 mcg/dL (calc) [facility] % Saturation 23 16 - 45 % (calc) [facility] Ferritin 10(L) 16 - 154 ng/mL [facility] Comment: Test Performed at: [email or web address] [id number] [address] [facility] [place] [address] MARÍA ELENA JOHN MD 08/01/2024 10:2 5 AM CDT 08/01/2024 10:28 AM CDT Apolonia MENDEZ LAB - CHEMISTRY ORDERABL ES Final Result [facility] [id number] [place] [id number] * (ABNORMAL) CBC W/O DIFFERENTIAL (08/01/2024 10:25 AM CDT) Pathologist [facility] White Blood Cell Count 8.8 3.8 - 10.8 Thousand/ uL [facility] RBC 5.05 3.80 - 5.10 Million/u L [facility] Hemoglobin 13.7 11.7 - 15.5 g/dL [facility] Hematocrit 43.9 35.0 - 45.0 % [facility] MCV 86.9 80.0 - 100.0 fL [facility] MCH 27.1 27.0 - 33.0 pg [facility] MCHC 31.2(L) 32.0 - 36.0 g/dL [facility] Comment: For adults, a slight decrease in the calculated MCHC value (in the range of 30 to 32 g/dL) is most likely not clinically significant; however, it should be interpreted with caution in correlation with other red cell parameters and the patient's clinical condition. RDW 14.1 11.0 - 15.0 % [facility] Platelet Count 208 140 - 400 Thousand/ uL [facility] MPV 13.3(H) 7.5 - 12.5 fL [facility] Comment: REPORT COMMENT: FASTING:NO Test Performed at: [email or web address] [address] MARÍA ELENA JOHN MD 08/01/2024 10:2 5 AM CDT 08/01/2024 10:28 AM CDT Apolonia Ponce EXPERIMENTAL MECHANIC SPACECRAFT-LABORATORY SPECIALIST LAB - HEMATOLOGY ORDERAB LES Final Result [address] [address] * HPV DETECTION HIGH RISK TREV (05/04/2023 11:43 AM ANCHOR TACKER) Pathologist [facility] High Risk Human Papilloma Result Not detected Not detected 05/11/2023 9:12 AM CDT [facility] High Risk Human Papilloma Interp 05/11/2023 9:12 AM CDT [facility] Comment:High Risk Human Cristian lloma Virus was Not Detected. Pathology/Cytolo gy MISCELLANEOUS SAMPLES / Unknown 05/04/2023 11:43 AM ANCHOR TACKER 05/05/2023 12:54 PM ANCHOR TACKER Narrative [facility] - 05/11/2023 9:12 AM CDT Nucleic acid isolated from the specimen was analyzed with a nucleic acid amplification test (FDA approved Gen-Probe HPV Assay) to detect high risk human papilloma virus (Types: 16, 18, 31, 33, 35, 39, 45, 51, 52, 56, 58, 59, 66, and 68). The reference range is Not Detected. Comment: These test results should not be used as the sole basis for clinical assessment and treatment of patients. These results should always be correlated with other available data (cytology, histology, and clinical information). Jyotsna Spivey MD LAB - MICROBIOLOGY ORDERABL ES Final Result [facility] [address] [phone] from Last 3 Months or Most Recently Relevant to Health Maintenance Insurance [facility] Care Teams Biological Chemist Relationship Specialty Start Date End Date Apolonia Ponce, EXPERIMENTAL MECHANIC SPACECRAFT-LABORATORY SPECIALIST [address] [place] [phone] PCP - General Nurse Practitioner 12/08/22 Apolonia Ponce, TIMOTHY-LABORATORY SPECIALIST [address] [phone] Nurse Practitioner Nurse Practitioner 10/08/24
--- OUTSIDE RECORDS SUMMARY | 2024-10-29 01:15 | XMS_ITS | Clinical Summary ---
Author Organization [facility] Address [address] [place] [address] Care Team Providers Care Clinical Engineer Name Role Phone Johnie Keene MD Primary Care Provider [phone] Allergies No known active allergies Medications ibuprofen (MOTRIN) 200 MG tablet Take 1 tablet (200 mg total) by mouth every 6 (six) hours as needed for Pain. Active methocarbamol (ROBAXIN) 750 MG TabIndications:Nec k pain, chronic,Cervical radiculopathy Take 1 tablet (750 mg total) by mouth 3 (three) times daily. 60 tablet 08/29/19 23 Active Additional Information Patient not taking.Reported on 10/07/2022 metFORMIN ER (GLUCOPHAGE-XR) 500 MG 24 hr tabletIndications: PCOS (polycystic ovarian syndrome) Take 1 tablet (500 mg total) by mouth daily with breakfast. 90 tablet 1 10/08/19 23 Active ondansetron (ZOFRAN-ODT) 4 MG disintegrating tabletIndications: PCOS (polycystic ovarian syndrome) Take 1 tablet (4 mg total) by mouth every 8 (eight) hours as needed for Nausea. 20 tablet 10/08/19 23 Active Active Problems Problem Noted Date Diagnosed Date History of melanoma 10/05/2022 Prediabetes 09/07/2022 Pinched nerve in neck 08/03/2022 Malignant melanoma of skin o f lower limb, including hip (CMS/HCC HHS/HCC) 07/20/2021 Immunizations Immunization Administration Dates Next Due MODERNA COVID-19 (12+) MRNA, LNP-S, PF, 100 MCG/ 0.5 ML DOSE 02/22/2021 PFIZER COVID-19 (ORIGINAL FO RMULATION, PURPLE CAP) mRNA, LNP-S, PF, 30 MCG/0.3 ML DOSE 06/14/2020,05/24/2020 Family History Medical History Relation Comments Diabetes Maternal Grandmother Stroke Maternal Grandmother Cancer Mother lung cancer 64yr s old, cervical cancer 58yrs old Cancer Paternal Grandfather pancreatic cancer Relation Status Comments Maternal Grandmother Mother Paternal Grandfather Social History Tobacco Use Types Packs/Day Years Used Date Smoking Tobacco: Never Smokeless Tobacco: Never Tobacco Cessation:Counseling Given: Yes Comments:Counseled by DR Keene Alcohol Use Standard Drinks/Week Comments Yes 5 (1 standard drink = 0.6 oz pure alcohol) the others rarely-if so one in place of wine PHQ-2 Answer Date Recorded Patient Health Questionnaire-2 Score 0 08/24/2022 Comments No Sex and Gender Information Value Date Recorded Sex Assigned at Not on file Legal Sex Female 12:16 PM CDT Gender Identity Not on file Sexual Orientation Not on file Last Filed Vital Signs Vital Sign Reading Time Taken Comments Blood Pressure 119/79 11/07/2022 11:27 AM CDT Pulse 92 10/07/2022 9:39 AM CDT Temperature 36.8 C (98.2 F) 10/07/2022 9:39 AM CDT Respiratory Rate 18 10/07/2022 9:39 AM CDT Oxygen Saturation 97% 10/07/2022 9:39 AM CDT Inhaled Oxygen Concentration - - Weight 73.1 kg (161 lb 3.2 oz) 10/07/2022 9:39 A M CDT Height 162.6 cm (5' 4) 10/07/2022 9:39 AM CDT Body Mass Index 27.67 10/07/2022 9:39 AM CDT Plan of Treatment Health Maintenance Due Date Last Done Comments Cervical Cancer Screening Pa p Smear (Age 30 to 64) Every 3 Years 1992 DTaP, Tdap and Td Vaccines ( 1 - Tdap) 07/29/2011 Hepatitis B Vaccines (1 of 3 - 19+ 3-dose series) 07/29/2011 HPV Vaccines (1 - 3-dose SCD M series) 07/29/2019 Cervical Cancer Screening Pa p with HPV Testing (Age 30 to 64) Every 5 Years 2022 Cervical Cancer Screening wi th HPV 2022 Annual Physical 08/25/2023 08/24/2022 COVID-19 Vaccine (2023-03 5 season) 2023 02/22/2021, 06/14/2020, 05/24/2020 PHQ-2 (Physician [place]) 02/28/2024 Hepatitis C Completed 09/07/2022 Meningococcal B Vaccine Aged Out No l onger eligible based on patient's age to complete this topic Meningococcal Vaccine Aged Out No mushtaq april eligible based on patient's age to complete this topic Pneumococcal Vaccine: Pediatrics (0 to 5 Years) and At-Risk Patients (6 to 49 Years) Aged Out No longer eligible b ased on patient's age to complete this topic RSV Immunizations Under 20 Months Aged Out No longer eligible b ased on patient's age to complete this topic Procedures Procedure Name Priority Date/Time Associated Diagnosis Comments HEPATITIS C ANTIBODY Routine 09/07/2022 7:31 AM CDT Annual physical exam Establishing care with new doctor, encounter for Routine general medical examination at a health care facility Encounter for hepatitis C screening test for low risk patient from Last 3 Months or Most Recently Relevant to Health Maintenance Results * HEPATITIS C ANTIBODY (09/07/2022 7:31 AM CDT) HEPATITIS C AB NON-REACTI VE NON-REACT DANIELLA 09/07/2022 7:59 PM CDT [facility] Comment: ANTIBODIES TO HCV NOT DETECTED. DOES NOT EXCLUDE THE POSSIBILITY OF EXPOSURE TO HCV. 09/07/2022 7:31 AM CDT Johnie Keene MD LABORATORY Final Result [facility] [address] [place] [address], [phone] from Last 3 Months or Most Recently Relevant to Health Maintenance Insurance [employer] Care Teams Clinical Engineer Relationship Specialty Start Date End Date Johnie Keene MD [address] [facility] [address] [place] [address] PCP - General INTERNAL MEDICINE 08/11/22
--- OUTSIDE RECORDS SUMMARY | 2024-10-29 01:15 | XMS_ITS | Encounter Summary ---
Author Organization [facility] Address [address] [place] [address] Care Team Providers Care Knotting Machine Operator Name Role Phone Johnie Keene MD Primary Care Provider [phone] Encounter Details Date Type Department Care Team (Late st Contact Info) Description 09/02/2022 [employer] Message Enc [facility] Multispecialty [facility] - [place] [address] [address] [place] [address] Lei, [facility] Provider xray result Social History Tobacco Use Types Packs/Day Years Used Date Smoking Tobacco: Never Smokeless Tobacco: Never Comments:Counseled by DR Maria Ines dillon Alcohol Use Standard Drinks/Week Comments Yes 5 [...] on file Sexual Orientation Not on file documented as of this encounter Plan of Treatment Not on file documented as of this encounter Visit Diagnoses Not on filedocumented in this encounter Additional Health Concerns Assessment Noted Time PHQ-9 Depression Total Score: 3 08/25/19 23 2:08 PM CDT documented as of this encounter Care Teams Knotting Machine Operator Relationship Specialty Start Date End Date Johnie Keene MD [address] [facility] [address] [place], [place] [phone] PCP - General INTERNAL MEDICINE 6/15/23 documented as of this encounter
--- OUTSIDE RECORDS SUMMARY | 2024-10-29 01:15 | XMS_ITS | Encounter Summary ---
Author Organization [facility] Address [address] [place] [address] Care Team Providers Care Solar Technician Name Role Phone Johnie Keene MD Primary Care Provider [phone] Encounter Details Date Type Department Care Team (Latest Contact Info) Description 11/08/2022 [employer] Message Enc [facility] Medical Group Multispecialty Care - [place] [address] [address] [place], [place] [phone] Johnie Keene MD [address] [facility] [address] [place], [place] [phone] Headache after meds Social History Tobacco Use Types Packs/Day Years [...] documented as of this encounter Care Teams Solar Technician Relationship Specialty Start Date End Date Johnie Keene MD [address] [place] [address] [address] [place] [address] PCP - General INTERNAL MEDICINE 08/11/22 documented as of this encounter
--- OUTSIDE RECORDS SUMMARY | 2024-10-29 01:15 | XMS_ITS | Encounter Summary ---
Author Organization [facility] Address [address] [place] [address] Care Team Providers Care Machine Specialist Name Role Phone Apolonia Ponce NURSE CONSULTANT-COMMERCIAL LIGHT FIXTURE ASSEMBLER Primary Care Provider + Apolonia Ponce NURSE CONSULTANT-COMMERCIAL LIGHT FIXTURE ASSEMBLER Unavailable [phone] Encounter Details Date Type Department Care Team (Late Contact Info) Description 10/24/2024 Orders Only [facility] - Orthopedics [address] [place] [phone] Alexandra Nicole MD [address] [place] [phone] Left shoulder pain, unspecified chronicity Social History Tobacco Use Types Packs/Day Years Used Date Smoking Tobacco: Never Smokeless Tobacco: Never Alcohol Use Standard Drinks/Week Comments Yes 0 [...] Start Date Job End Date Fellowship with [employer] [employer] Not on file Not on file Not on f ile documented as of this encounter Plan of Treatment Upcoming Encounters Date Type Department Care Team (Late Contact Info) Description 11/05/2024 1:45 PM CDT Office Visit [facility] [address] [place] [address] [place] [phone] Apolonia Ponce APRN-CNP [address] [place] [phone] Alexandra Nicole MD [address] [phone] 02/13/2025 4:00 PM GROUP PRACTICE PEDIATRICIAN Office Visit [facility] - Internal Medicine [address], [address] [phone] Apolonia Ponce APRN-CNP [address] [phone] Scheduled Orders Name Type Priority Associated Diagnoses Orde r Schedule XR Shoulder Left 2Vw or More Imaging Routine Left shoulder pain, unspecified chronicity 1 Occurrences starting 10/24/2024 until 10/24/2025 documented as of this encounter Visit Diagnoses Diagnosis Left shoulder pain, unspecified chronicity- Primary documented in this encounter Care Teams Machine Specialist Relationship Specialty Start Date End Date Apolonia Ponce APRN-CNP [facility] [phone] PCP - General Nurse Practitioner 12/08/22 Apolonia Ponce APRN-CNP [address] [place] [phone] Nurse Practitioner Nurse Practitioner 10/08/24 documented as of this encounter
--- OUTSIDE RECORDS SUMMARY | 2024-10-29 01:15 | XMS_ITS | Encounter Summary ---
Author Organization [facility] Address [address] [place] [address] Care Team Providers Care Centrifugal Chiller Technician Name Role Phone Apolonia Ponce PICKER MACHINE OPERATOR-UNDERGROUND PRODUCTION FOREPERSON Primary Care Provider + Apolonia Ponce PICKER MACHINE OPERATOR-UNDERGROUND PRODUCTION FOREPERSON Unavailable [phone] Encounter Details Date Type Department Care Team (Late st Contact Info) Description 07/12/2024 Telephone [facility] - General Dermatology [address], [address] [place] [address] None, Physician [address] [place] [address] Social History Tobacco Use Types Packs/Day Years Used Date Smoking Tobacco: Never Smokeless Tobacco: Never Alcohol Use Standard Drinks/Week Comments Yes 0 (1 standard drink = 0.6 oz pur e alcohol) occasional PHQ-2 Answer Date Recorded Patient Health Questionnaire-2 Score 0 05/02/2024 Comments No Sex and Gender Information Value Date Recorded Sex Assigned at Not on file Legal Sex Female 4:09 PM CDT Gender Identity Not on file Sexual Orientation Not on file Occupation Industry Job Start Date Job End Date Fellowship with [employer] Not on file Not on file Not on f ile documented as of this encounter Miscellaneous Notes * Telephone Encounter - Robin Greenwood - 07/12/2024 3:28 PM CDT Called pt to schedule apt for mole check with Dr. La this coming . Left detailed message with pt, and a few call back numbers. documented in this encounter Plan of Treatment Upcoming Encounters Date Type Department Care Team (Late st Contact Info) Description 11/05/2024 1:45 PM CDT Office Visit [facility]ics [address] [facility] [place] [phone] Apolonia Ponce APRN-CNP [address] [place] [phone] [place] [address] [place] [phone] 02/13/2025 4:00 PM NUT CRACKER Office Visit [facility] - Internal Medicine [address] , [address] [phone] Apolonia Ponce APRN-CNP [address] [place] [phone] documented as of this encounter Visit Diagnoses Not on filedocumented in this encounter Care Teams Centrifugal Chiller Technician Relationship Specialty Start Date End Date Apolonia Ponce APRN-CNP [address] [place] [phone] PCP - General Nurse Practitioner 12/08/22 Apolonia Ponce APRN-CNP [address] [place] [phone] Nurse Practitioner Nurse Practitioner 10/08/24 documented as of this encounter
--- OUTSIDE RECORDS SUMMARY | 2024-10-29 01:15 | XMS_ITS | Encounter Summary ---
Author Organization [facility] Address [address] [place] [address] Care Team Providers Care Brush Filler Hand Name Role Phone Johnie Keene MD Primary Care Provider [phone] Encounter Details Date Type Department Care Team (Late st Contact Info) Description 01/03/2023 Therapy Plan [facility] [address] [place], [place] [phone] Shahida Ren, PT [facility] [place] [place] [address] Social History Tobacco Use Types Packs/Day Years [...] documented as of this encounter Care Teams Brush Filler Hand Relationship Specialty Start Date End Date Johnie Keene MD [address] [place] [address] [address] [place] [address] PCP - General INTERNAL MEDICINE 08/11/22 documented as of this encounter
--- OUTSIDE RECORDS SUMMARY | 2024-10-29 01:15 | XMS_ITS | Encounter Summary ---
Author Organization [facility] Address [address] [place] [address] Care Team Providers Care Welfare Aide Name Role Phone Johnie Keene MD Primary Care Provider [phone] Encounter Details Date Type Department Care Team (Latest Contact Info) Description 10/08/2022 [employer] Message Enc [facility] Medical Group Multispecialty Care - [place] [address] [address] [place], [place] [phone] Johnie Keene MD [address] [phone] Medication options Social History Tobacco Use Types Packs/Day Years [...] documented as of this encounter Care Teams Welfare Aide Relationship Specialty Start Date End Date Johnie Keene MD [address] [place] [address] 157 [place] [address] PCP - General INTERNAL MEDICINE 08/11/22 documented as of this encounter
--- OUTSIDE RECORDS SUMMARY | 2024-10-29 01:15 | XMS_ITS | Encounter Summary ---
Author Organization [facility] Address [address] [place] [address] Care Team Providers Care Leasing Assistant Name Role Phone Johnie Keene MD Primary Care Provider [phone] Encounter Details Date Type Department Care Team (Latest Contact Info) Description 09/07/2022 [email or web address] Message Enc [facility] Medical Group Multispecialty Care - [place] [address] [address] [place], [place] [phone] Johnie Keene MD [address] [facility] [address] [place], [place] [phone] elevated glucose level Social History Tobacco Use Types Packs/Day Years [...] documented as of this encounter Care Teams Leasing Assistant Relationship Specialty [place] [address] [place] [address] 157 [place] [address] PCP - General INTERNAL MEDICINE 08/11/22 documented as of this encounter
--- OUTSIDE RECORDS SUMMARY | 2024-10-29 01:15 | XMS_ITS | Encounter Summary ---
Author Organization [facility] Address [address] [place] [address] Care Team Providers Care Lead Quality Technician Name Role Phone Johnie Keene MD Primary Care Provider [phone] Encounter Details Date Type Department Care Team (Late st Contact Info) Description 08/27/2022 [employer] Message Enc [facility] Medical Group Multispecialty Care - [place] [address] [address] [place] [address] Johnie Keene MD [address] [facility] [address] [place] [address] Neck Question Social History Tobacco Use Types Packs/Day Years [...] documented as of this encounter Care Teams Lead Quality Technician Relationship Specialty [place] [address] [place] [address] [place] [address] PCP - General INTERNAL MEDICINE 08/11/22 documented as of this encounter
--- OUTSIDE RECORDS SUMMARY | 2024-10-29 01:15 | XMS_ITS | Encounter Summary ---
Author Organization [facility] Address [address] [place] [address] Care Team Providers Care Bowling Ball Grader And Marker Name Role Phone Apolonia Ponce SOFT IRON INSPECTOR-HOSIERY LOOPER Primary Care Provider + Apolonia Ponce SOFT IRON INSPECTOR-HOSIERY LOOPER Unavailable Encounter Details Date Type Department Care Team (Late Contact Info) Description 10/08/2024 Results Follow-Up [facility] - Internal Medicine [address] [phone] Apolonia Ponce, SOFT IRON INSPECTOR-HOSIERY LOOPER [address] [phone] Social History Tobacco Use Types Packs/Day Years Used Date Smoking Tobacco: Never Smokeless Tobacco: Never Alcohol Use Standard Drinks/Week Comments Yes 0 (1 standard drink = 0.6 oz pur e alcohol) occasional PHQ-2 Answer Date Recorded Patient Health Questionnaire-2 Score 0 09/30/2024 Comments No Sex and Gender Information Value [...] Description 11/05/2024 1:45 PM CDT Office Visit [facility] - Orthopedics [address] [place] [address], [place] [address] Apolonia Ponce APRN-CNP [address] [phone] Alexandra Nicole MD [address] [phone] 02/13/2025 4:00 PM RAILWAY SIGNAL ELECTRICIAN Office Visit [facility] - Internal Medicine [address], [address] [phone] Apolonia Ponce APRN-CNP [facility] [phone] documented as of this encounter Visit Diagnoses Not on filedocumented in this encounter Care Teams Bowling Ball Grader And Marker Relationship Specialty Start Date End Date Apolonia Ponce APRN-CNP [address] [place] [phone] PCP - General Nurse Practitioner 12/08/22 Apolonia Ponce APRN-CNP [address] [place] [phone] Nurse Practitioner Nurse Practitioner 10/08/24 documented as of this encounter
[2024-10-29 01:18] VITALS: BP 126/86; PULSE 94; RESP 17; TEMP 36.4; O2SAT 100
--- NOTE | 2024-10-29 01:44 | ED_ITS ---
HPI - Wound/Laceration General Chief Complaint: Wound/Laceration Stated Complaint: abcess to breast Time Seen by Provider: 10/29/24 01:15 History of Present Illness HPI narrative: 34-year-old female presents to emergency department for redness to her left breast she noticed today. Patient states she was getting into the shower and she noticed a red spot on her left breast near her areola. She thought maybe she had been bit by a bug however did not witness a bug bite her. States her Tdap was updated in 2018. She also states it may be an ingrown hair. She states about 30 minutes later she noticed achiness to the region with surrounding redness which prompted her to come to the ER. She denies nipple drainage or inversion, fever, chills, history breast cancer or radiation. Related Data Allergies Allergy/AdvReac Type Severity Reaction Status Date / Time No Known Allergies Allergy Verified 04/25/23 12:06 Review of Systems Review of Systems: All systems reviewed & are unremarkable except as noted in HPI and below PMFSH Past Medical History Medical History Melanoma Social History Social History Smoking status: Never smoker Alcohol intake: current Alcohol use details: rare Substance use type: does not use Gender identity (if verbalized by the patient): Female Exam Narrative: GENERAL: Well-appearing, well-nourished, and in no acute distress. HEAD: Normocephalic, atraumatic. EYES: EOMI. ENT: Nares clear, no rhinorrhea or epistaxis. Mucous membranes moist. NECK: Supple. CHEST: Clear to auscultation. No respiratory distress. HEART: Regular rate and rhythm. No murmur heard. Normal peripheral pulses. SKIN: Very small erythematous papule at the 2 o'clock position near the left areola with surrounding erythema measuring abour 3cm x 2cm, and tenderness. There is a streak of erythema extending caudally and laterally in the direction of the axilla measuring about 7cm consistent with lymphangitis. Mild tender palpable left axillary lymphadenopathy. No induration or fluctuation, no nipple inversion or drainage. No peau d' orange skin NEURO: No focal deficits. Alert and oriented x3 Course Vital Signs Vital signs: Vital Signs Temperature 97.5 F L 10/29/24 01:18 Pulse Rate 94 10/29/24 01:18 Respiratory Rate 17 10/29/24 01:18 Blood Pressure 126/86 10/29/24 01:18 Pulse Oximetry 100 10/29/24 01:18 Oxygen Delivery Room Air 10/29/24 01:18 Temperature 97.5 F L 10/29/24 01:18 Pulse Rate 94 10/29/24 01:18 Respiratory Rate 17 10/29/24 01:18 Blood Pressure 126/86 10/29/24 01:18 Pulse Oximetry 100 10/29/24 01:18 Oxygen Delivery Room Air 10/29/24 01:18 MDM - Wound/Laceration MDM Narrative Medical decision making narrative: 34-year-old female presents emergency department for a red spot to her left breast near her areola that she noticed today with surrounding redness and pain. See HPI for further history. Triage vitals are stable. Exam is notable for the above. There is no areas of fluctuation or induration, drainable abscess, no nipple inversion or discharge. Presentation is consistent with a breast cellulitis which may be due to an ingrown hair or folliculitis verses patient's concern for possible bug bite. She does note that her Tdap was updated in 2018. I did offer to provide a Tdap today to fall within the 5 year window, however pt politely declined. Will start her on Keflex and have her follow-up closely with her OBGYN. The cellulitis was outlined with a surgical marker and she was given discussed strict ED return precautions. She is agreeable with the plan and verbalized understanding. Discharged in stable condition. Lab Data Labs: Lab Results 10/29/24 Range/Units 01:49 POC Urine HCG, Qual Negative (Negative) Discharge Plan Discharge Clinical Impression: Cellulitis of breast Patient Disposition: Home Condition: Stable Instructions: Antibiotic Form, Cellulitis (ED) Additional Instructions: Please take the antibiotics as directed. Take Tylenol ibuprofen as needed for pain. Follow-up closely with your OBGYN. Return to the emergency department if you develop increased redness, nipple drainage, fever, or other concerning sym ptoms. Patient Language: Cypriot Prescriptions: New cephalexin 500 mg capsule 500 mg PO Q6H Qty: 28 0RF Follow-up/Referrals: PHYSICIAN,ALLERGY AND IMMUNOLOGY SPECIALIST [Primary Care Provider, Internal Medicine]
[2024-10-29] MEDS: CEPHALEXIN 500 MG CAPSULE PO (01:50)
[2024-10-29 01:51] LABS: BEDSIDEPREGUCG Negative (Negative)
[2024-10-29 02:19] VITALS: BP 113/79; PULSE 90; RESP 16; O2SAT 98
== END 2024-10-29 02:20 | disposition home or self-care (01) ==
PROVIDERS: Emergency Provider Physician Assistant
DX: N61.0 Mastitis without abscess (principal); Z85.820 Personal history of malignant melanoma of skin
CPT/HCPCS: 81025; 99283; A9270